=== PATIENT | female | born 1950 | race Caucasian/White ===

== ENCOUNTER 2020-03-27 06:56 | Outpatient (CLI) | payer MEDICARE ==
--- NOTE | 2020-03-27 10:22 | ULT ---
ABDOMINAL ULTRASOUND COMPLETE: HISTORY: Elevated LFTs. COMPARISON: 10/12/2017 gallbladder ultrasound. FINDINGS: Liver shows coarse increased echogenicity, evidence for fatty change with minimal hepatomegaly. Stat us post cholecystectomy. Common bile duct 0.6 cm. No focal liver masses. Visualized pancreas, IVC, and aorta are unremarkable. The spleen is upper range of normal size. The kidneys show no hydronep hrosis or other acute process. No abnormal fluid collection. IMPRESSION: 1. Enlarged heterogeneously echogenic probably fatty liver. 2. Status post cholecystectomy. 3. Borderline-size spleen. POS: [facility]
== END 2020-03-27 06:57 | disposition home or self-care (01) ==
LOC: BICULT 06:56
PROVIDERS: ATTEND Internal Medicine Cardiovascular Disease
DX: R74.8 Abnormal levels of other serum enzymes (principal); R93.2 Abnormal findings on diagnostic imaging of liver and biliary tract; R16.0 Hepatomegaly, not elsewhere classified; Z90.49 Acquired absence of other specified parts of digestive tract
CPT/HCPCS: 93975

== ENCOUNTER 2020-10-02 07:29 | Outpatient (CLI) | payer MEDICARE ==
[2020-10-02 08:13] LABS: Estimated GFR-MDRD - POC Greater than 90
--- NOTE | 2020-10-02 10:15 | MRI ---
MRI OF THE ABDOMEN WITHOUT AND WITH CONTRAST: COMPARISON: Abdominal ultrasound 03/27/2020. HISTORY: Right upper quadrant abdominal pain and elevated LFTs. TECHNIQUE: Multiplanar, multisequence MR images were obtained of the abdomen without and with IV contrast. FINDINGS: The gallbladder has been removed. There is a tiny 4 mm focus of high T2 signal in the caudate lobe o f the liver. This is difficult to see on the post contrast images secondary to pulsation artifact fr om the aorta. This most likely represents a small cyst. There is diffuse loss of signal in the live r on the [id number] images consistent with fatty infiltration. No biliary dilatation is seen. There is slight prominence of the right renal collecting system. The left kidney, adrenal glands, sp dilia, and pancreas are unremarkable. No abdominal adenopathy is seen. No abnormal enhancement is ap preciated. No marrow signal abnormality is present. IMPRESSION: 1. Fatty liver. 2. Likely small cyst in the caudate lobe of the liver. 3. Slight prominence of the right renal collecting system. POS: [facility]
[2020-10-02] MEDS ORDERED: Magnevist 469MG/ML 20 ML VIAL ONE (14:15)
== END 2020-10-02 07:30 | disposition home or self-care (01) ==
LOC: BICMRI 07:29
PROVIDERS: ATTEND Internal Medicine Gastroenterology
DX: K76.0 Fatty (change of) liver, not elsewhere classified (principal); R89.0 Abnormal level of enzymes in specimens from other organs, systems and tissues; R10.11 Right upper quadrant pain
CPT/HCPCS: 74183; 82565; A9579

== ENCOUNTER 2021-10-11 07:51 | Outpatient (CLI) | payer MEDICARE | END 2021-10-11 07:52 | disposition home or self-care (01) | LOC: ULT 07:51 | PROVIDERS: ATTEND Physician Assistant Medical | DX: K76.0 Fatty (change of) liver, not elsewhere classified (principal); Z90.49 Acquired absence of other specified parts of digestive tract | CPT/HCPCS: 76705 ==

== ENCOUNTER 2022-08-03 10:40 | Outpatient (CLI) | payer MEDICARE | END 2022-08-03 10:41 | disposition home or self-care (01) | LOC: DTY/OP 10:40 | PROVIDERS: ATTEND Surgery | DX: E66.01 Morbid (severe) obesity due to excess calories (principal) | CPT/HCPCS: 97802 ==

== ENCOUNTER 2022-09-13 09:49 | Outpatient (CLI) | payer MEDICARE ==
[2022-09-13 10:59] LABS: #Eosinphils 0.1 10x3/uL (0.0-0.5); #Monocytes 0.9 10x3/uL (0.0-1.1); #Neutrophils 5.3 10x3/uL (1.5-8.4); %Basophils 0.3 % (0.0-2.0); %Lymphocytes 27.7 % (18.0-47.0); %Monocytes 10.3 % (0.0-10.0); %Neutrophils 60.1 % (40.0-75.0); Hemoglobin 12.8 g/dL (12.0-15.5); Mean Corpuscular HGB CONC 33.9 g/dL (32.0-36.0); Mean Corpuscular Hemoglobin 29.4 pg (27.0-33.0); Mean Corpuscular Volume 86.9 fl (81.6-98.3); Mean Platelet Volume 11.1 fl (7.4-10.4); Platelet Count 214 10x3/uL (150-450); RBC Distribution Width 13.8 % (11.5-14.5); Red Blood Cell (RBC) Count 4.35 10x6/uL (3.90-5.03); White Blood Cell (WBC) Count 8.8 10x3/uL (3.5-10.5)
[2022-09-13 11:20] LABS: ALT (SGPT) 84 U/L (8-55); AST (SGOT) 116 U/L (5-34); Albumin 4.2 g/dL (3.4-4.8); Alkaline Phosphatase 69 U/L (40-110); Anion Gap 16 mmol/L (10-20); BUN (Urea Nitrogen) 15 mg/dL (9.8-20.1); Bilirubin, Total 0.5 mg/dL (0.2-1.2); Calc. Creatinine Clearance 0 mL/min (70-130); Calcium 9.5 mg/dL (7.8-10.44); Carbon Dioxide 22 mmol/L (23-31); Chloride 104 mmol/L (98-107); Estimated GFR 94; Globulin 3.6 g/dL (2.4-3.5); Glucose 197 mg/dL (80-115); Protein, Total 7.8 g/dL (5.8-8.1); Sodium 138 mmol/L (136-145)
[2022-09-13 14:19] LABS: Hemoglobin A1c 6.6 % (4.0-6.0)
== END 2022-09-13 09:50 | disposition home or self-care (01) ==
LOC: LABBT 09:49
PROVIDERS: ATTEND Surgery
DX: Z01.818 Encounter for other preprocedural examination (principal); E66.01 Morbid (severe) obesity due to excess calories
CPT/HCPCS: 71046; 80053; 83036; 85025

== ENCOUNTER 2022-09-13 10:00 | Inpatient (IN) | payer MEDICARE ==
[2022-09-26 12:52] VITALS: BMI 35.6
[2022-09-27] MEDS ORDERED: Heparin 5,000 UNITS/ML VIAL ONE (10:12)
[2022-09-27 11:23] LABS: SARS-CoV-2 NAA Rapid Test Not Detected (NotDetected)
[2022-09-27] MEDS ORDERED: Bupivacaine/Epinephrine 0.25% 30 ML VIAL ONE (12:30)
[2022-09-27] MEDS ORDERED: Ketamine 50 MG/ML (10ML VIAL) ONE (12:34)
[2022-09-27] MEDS ORDERED: SUGAMMADEX SODIUM 200 MG/2 ML VIAL ONE (12:34)
[2022-09-27] MEDS ORDERED: fentaNYL PF 100 MCG/2 ML SYRINGE ONE (12:34)
[2022-09-27] MEDS ORDERED: Sodium Chloride 0.9% 100 ML ONE (12:37)
[2022-09-27] MEDS ORDERED: CEFAZOLIN 2 GM VIAL ONE (12:37)
[2022-09-27] MEDS ORDERED: NEOSTIGMINE 3 MG/3 ML SYR 3 MG/3 ML SYRINGE ONE (12:56)
[2022-09-27] MEDS ORDERED: Ondansetron PF 4 MG/2 ML Vial ONE (12:56)
[2022-09-27] MEDS ORDERED: Rocuronium Bromide 10 MG/ML (10ML VIAL) ONE (12:56)
[2022-09-27] MEDS ORDERED: Glycopyrrolate 0.2 MG/ML 5 ML SYRINGE ONE (12:56)
[2022-09-27] MEDS ORDERED: Dexamethasone 20 MG/5 ML VIAL ONE (12:56)
[2022-09-27] MEDS ORDERED: PROPOFOL 200 MG/20 ML VIAL ONE (12:56)
[2022-09-27] MEDS ORDERED: Phenylephrine 10 MG/ML VIAL ONE (12:56)
[2022-09-27] MEDS ORDERED: Dextrose 50% Abboject 50 ML SYRINGE SLOW IVP PRN ×2 (14:24→14:26)
[2022-09-27] MEDS ORDERED: hydrALAZINE 20 MG/ML VIAL SLOW IVP PRN (14:24)
[2022-09-27] MEDS ORDERED: Dextrose 5% in Water 1,000 ML IV PRN ×2 (14:24→14:26)
[2022-09-27] MEDS ORDERED: Promethazine HCl 25 MG/ML VIAL IM PRN ×2 (14:24→14:34)
[2022-09-27] MEDS ORDERED: Morphine 4 MG/ML VIAL SLOW IVP PRN (14:24)
[2022-09-27] MEDS ORDERED: diphenhydrAMINE 50 MG/ML VIAL IVP PRN (14:24)
[2022-09-27] MEDS ORDERED: Promethazine HCl 25 MG/ML VIAL IVPB PRN (14:34)
[2022-09-27] MEDS ORDERED: Ondansetron HCl/PF 4 MG/2 ML Vial IVP PRN (14:34)
[2022-09-27] MEDS ORDERED: FENTANYL 50 MCG/ML 1 ML VIAL ONE ×2 (14:46→15:18)
[2022-09-27] MEDS ORDERED: Insulin Regular 300 UNITS/3 ML VIAL ONE (15:17)
[2022-09-27] MEDS: 1/2 NS w/KCL 20 mEq 1,000 ML IV SCH (17:30)
[2022-09-27] MEDS ORDERED: Ketorolac Tromethamine 30 MG/ML VIAL IVP SCH (18:00)
[2022-09-27] MEDS: Insulin Regular 300 UNITS/3 ML VIAL SC PRN (18:34)
[2022-09-27] MEDS: Ondansetron PF 4 MG/2 ML Vial IVP PRN ×2 (18:35→21:36)
[2022-09-27] MEDS: Hydrocodone-Acetamin 15 ML UDCUP PO PRN (21:31)
[2022-09-27] MEDS: CEFAZOLIN 2 GM in Sodium Chloride 0.9% 100 ML IVPB SCH (22:05)
[2022-09-28] MEDS: Morphine 4 MG/ML VIAL SLOW IVP PRN ×2 (00:02→04:34)
[2022-09-28] MEDS: Hydrocodone-Acetamin 15 ML UDCUP PO PRN ×3 (00:16→10:11)
[2022-09-28] MEDS: Insulin Regular 300 UNITS/3 ML VIAL SC PRN (01:15)
[2022-09-28] MEDS: 1/2 NS w/KCL 20 mEq 1,000 ML IV SCH (04:01)
[2022-09-28] MEDS: CEFAZOLIN 2 GM in Sodium Chloride 0.9% 100 ML IVPB SCH (04:35)
[2022-09-28 06:34] LABS: #Lymphocytes 2.2 thou/uL (1.20-3.40); #Monocytes 1.4 thou/uL (0.11-0.59); %Eosinophils 0.1 % (0.0-10.0); %Lymphocytes 14.8 % (21.0-51.0); %Monocytes 9.4 % (0.0-10.0); %Neutrophils 75.8 % (42.0-75.0); Hemoglobin 12.4 g/dL (12.0-16.0); Mean Corpuscular HGB CONC 33.1 g/dL (32.0-36.0); Mean Corpuscular Hemoglobin 30.5 pg (27.0-31.0); Mean Corpuscular Volume 92.2 fl (78.0-98.0); Mean Platelet Volume 8.7 fL (7.4-10.4); Platelet Count 234 10x3/uL (130-400); RBC Distribution Width 13.7 % (11.5-14.5); Red Blood Cell (RBC) Count 4.06 mill/uL (4.20-5.40); White Blood Cell (WBC) Count 14.5 10x3/uL (4.8-10.8)
[2022-09-28 06:55] LABS: Anion Gap 15 mmol/L (10-20); BUN (Urea Nitrogen) 13 mg/dL (9.8-20.1); Calc. Creatinine Clearance 120 mL/min (70-130); Calcium 8.8 mg/dL (7.8-10.44); Carbon Dioxide 20 mmol/L (23-31); Chloride 104 mmol/L (98-107); Estimated GFR 94; Glucose 153 mg/dL (80-115); Potassium 4.2 mmol/L (3.5-5.1); Sodium 135 mmol/L (136-145)
[2022-09-28] MEDS ORDERED: Pantoprazole 40 MG VIAL IVP SCH (09:00)
[2022-09-28] MEDS ORDERED: Enoxaparin Sodium 40 MG/0.4 ML SYRINGE SC SCH (09:00)
[2022-09-28 12:51] VITALS: BP 135/70; TEMP 97.5
== END 2022-09-28 14:49 | disposition home or self-care (01) | DRG 621 ==
LOC: SURG A 09-27 09:55 → SURG B 09-27 17:33
PROVIDERS: ADMIT Surgery; ATTEND Surgery
PROC: 0DB64Z3 Excision of Stomach, Percutaneous Endoscopic Approach, Vertical (ICD-10-PCS; principal; 2022-09-27)
PROC: 0FB24ZX Excision of Left Lobe Liver, Percutaneous Endoscopic Approach, Diagnostic (ICD-10-PCS; 2022-09-27)
PROC: 8E0W4CZ Robotic Assisted Procedure of Trunk Region, Percutaneous Endoscopic Approach (ICD-10-PCS; 2022-09-27)
DX: E66.01 Morbid (severe) obesity due to excess calories (principal); E78.00 Pure hypercholesterolemia, unspecified; E11.9 Type 2 diabetes mellitus without complications; K74.60 Unspecified cirrhosis of liver; D64.9 Anemia, unspecified; Z96.651 Presence of right artificial knee joint; M19.90 Unspecified osteoarthritis, unspecified site; Z20.822 Contact with and (suspected) exposure to COVID-19; Z79.84 Long term (current) use of oral hypoglycemic drugs; Z90.49 Acquired absence of other specified parts of digestive tract; Z90.89 Acquired absence of other organs; Z90.710 Acquired absence of both cervix and uterus; Z95.5 Presence of coronary angioplasty implant and graft; Z82.49 Family history of ischemic heart disease and other diseases of the circulatory system; Z79.82 Long term (current) use of aspirin; Z79.899 Other long term (current) drug therapy; Z80.9 Family history of malignant neoplasm, unspecified; Z82.3 Family history of stroke; Z88.8 Allergy status to other drugs, medicaments and biological substances; Z68.35 Body mass index [BMI] 35.0-35.9, adult
CPT/HCPCS: 36415; 36416; 80048; 85025; 88307; 88313; C1889; C9113; J1100; J1644; J1650; J1815; J2270; J2370; J2405; J2704; J3010; J3480; J3490; U0002

== ENCOUNTER 2022-09-21 13:52 | Outpatient (CLI) | payer MEDICARE | END 2022-09-21 13:53 | disposition home or self-care (01) | LOC: BICCT 13:52 | PROVIDERS: ATTEND Internal Medicine Gastroenterology | DX: K76.0 Fatty (change of) liver, not elsewhere classified (principal); R19.06 Epigastric swelling, mass or lump; R16.0 Hepatomegaly, not elsewhere classified; I85.00 Esophageal varices without bleeding | CPT/HCPCS: 74170 ==

== ENCOUNTER 2022-10-25 08:12 | Day surgery (SDC) | payer OTHER ==
[2022-10-20 09:56] VITALS: BMI 32.5
[~2022-10-25 08:12] MED LIST: EPINEPHrine 0.3 MG in Ophthalmic Irrigation Solution 500 ML IRR SCH; Fentanyl 100 MCG/2 ML VIAL ONE; Midazolam HCl 2 mg/2 ml Vial ONE
[2022-10-25] MEDS ORDERED: Cyclopentolate 1% Opth Drop 2 ML BOT ONE (08:32)
[2022-10-25] MEDS ORDERED: Phenylephrine 2.5% Ophth Soln 5 ML BOT ONE (08:32)
[2022-10-25] MEDS ORDERED: CEFAZOLIN 1 GM VIAL ONE (09:41)
[2022-10-25] MEDS ORDERED: Indocyanine Green 25 MG/10 ML VIAL ONE (09:41)
[2022-10-25] MEDS ORDERED: Lidocaine 4% PF 5 ML AMP ONE (09:41)
[2022-10-25] MEDS ORDERED: Maxitrol 0.1% Opth Oint 3.5 GM TUBE ONE (09:41)
[2022-10-25] MEDS ORDERED: Triamcinolone 40 MG/ML VIAL ONE (09:41)
[2022-10-25] MEDS ORDERED: Lidocaine 1% PF 5 ML VIAL ONE (09:41)
[2022-10-25] MEDS ORDERED: PROPOFOL 200 MG/20 ML VIAL ONE (09:41)
[2022-10-25] MEDS ORDERED: Bupivacaine 0.75% 10 ML VIAL ONE (09:41)
== END 2022-10-25 10:55 | disposition home or self-care (01) ==
LOC: SDC 08:12
PROVIDERS: ATTEND Ophthalmology Retina Specialist
PROC: 08T53ZZ Resection of Left Vitreous, Percutaneous Approach (ICD-10-PCS; principal; 2022-10-25)
PROC: 08NF3ZZ Release Left Retina, Percutaneous Approach (ICD-10-PCS; 2022-10-25)
DX: H35.342 Macular cyst, hole, or pseudohole, left eye (principal); I48.91 Unspecified atrial fibrillation; I07.1 Rheumatic tricuspid insufficiency; M19.90 Unspecified osteoarthritis, unspecified site; G89.29 Other chronic pain; M54.9 Dorsalgia, unspecified; Z79.620 Long term (current) use of immunosuppressive biologic; Z79.899 Other long term (current) drug therapy; Z88.1 Allergy status to other antibiotic agents; Z88.6 Allergy status to analgesic agent
CPT/HCPCS: 67025; J0171; J0690; J2250; J2704; J3010; J3301; J3490

== ENCOUNTER 2023-08-23 08:00 | Outpatient (CLI) | payer MEDICARE ==
[2023-08-23] MEDS ORDERED: Magnevist 469MG/ML 20 ML VIAL ONE (09:42)
== END 2023-08-23 08:01 | disposition home or self-care (01) ==
LOC: BICMRI 08:00
PROVIDERS: ATTEND Internal Medicine Gastroenterology
DX: K76.0 Fatty (change of) liver, not elsewhere classified (principal); K74.60 Unspecified cirrhosis of liver; N13.30 Unspecified hydronephrosis; Z83.719 Family history of colon polyps, unspecified; Z86.010 Personal history of colon polyps
CPT/HCPCS: 36415; 74183; 80053; 82105; 85025

== ENCOUNTER 2023-08-28 12:48 | Outpatient (CLI) | payer MEDICARE | END 2023-08-28 12:49 | disposition home or self-care (01) | LOC: BICCT 12:48 | PROVIDERS: ATTEND Internal Medicine Gastroenterology | DX: N13.1 Hydronephrosis with ureteral stricture, not elsewhere classified (principal); R93.3 Abnormal findings on diagnostic imaging of other parts of digestive tract; K76.0 Fatty (change of) liver, not elsewhere classified | CPT/HCPCS: 74178 ==

== ENCOUNTER 2023-08-30 16:07 | Outpatient (CLI) | payer MEDICARE ==
[2023-08-30 16:53] LABS: Hematocrit 39.7 % (34.9-44.5); Hemoglobin 13.7 g/dL (12.0-15.5); Mean Corpuscular HGB CONC 34.5 g/dL (32.0-36.0); Mean Corpuscular Hemoglobin 29.3 pg (27.0-33.0); Mean Platelet Volume 10.1 fl (7.4-10.4); Platelet Count 216 10x3/uL (150-450); RBC Distribution Width 13.5 % (11.5-14.5); Red Blood Cell (RBC) Count 4.67 10x6/uL (3.90-5.03); White Blood Cell (WBC) Count 9.3 10x3/uL (3.5-10.5)
[2023-08-30 17:05] LABS: Chloride 104 mmol/L (98-107); Sodium 142 mmol/L (136-145)
[2023-08-30 17:10] LABS: PTT 28.8 sec (22.0-33.0); Prothrombin Time 10.9 sec (9.5-12.1)
[2023-08-30 17:27] LABS: BUN (Urea Nitrogen) 17 mg/dL (9.8-20.1); Calc. Creatinine Clearance 0 mL/min (70-130); Calcium 9.6 mg/dL (7.8-10.44); Carbon Dioxide 26 mmol/L (23-31); Estimated GFR 86; Glucose 107 mg/dL (80-115)
[2023-08-30 17:38] LABS: Anion Gap 16 mmol/L (10-20)
== END 2023-08-30 16:08 | disposition home or self-care (01) ==
LOC: LABBT 16:07
PROVIDERS: ATTEND Urology
DX: Z01.818 Encounter for other preprocedural examination (principal); N20.1 Calculus of ureter
CPT/HCPCS: 80048; 85027; 85610; 85730; 93005; 93010

== ENCOUNTER 2023-08-31 08:44 | Day surgery (SDC) | payer MEDICARE ==
[2023-08-30 16:29] VITALS: BMI 29.9
[2023-08-31] MEDS ORDERED: fentaNYL 50 mcg/mL 1 mL Vial ONE (10:40)
[2023-08-31] MEDS ORDERED: Iopamidol 0 ML ONE (10:42)
[2023-08-31] MEDS ORDERED: LevoFLOXacin 500 mg/D5W 100 ML BAG ONE (11:02)
[2023-08-31] MEDS ORDERED: Lidocaine 1% PF 5 ML VIAL ONE (11:18)
[2023-08-31] MEDS ORDERED: Rocuronium Bromide 10 MG/ML (10ML VIAL) ONE (11:18)
[2023-08-31] MEDS ORDERED: Dexamethasone 20 MG/5 ML VIAL ONE (11:18)
[2023-08-31] MEDS ORDERED: PROPOFOL 200 MG/20 ML VIAL ONE (11:18)
[2023-08-31] MEDS ORDERED: Succinylcholine 200 MG/10 ml SYRINGE FS ONE (11:18)
[2023-08-31] MEDS ORDERED: Glycopyrrolate 0.2 MG/ML 5 ML SYRINGE ONE (11:18)
[2023-08-31] MEDS ORDERED: Ondansetron PF 4 MG/2 ML Vial ONE (11:18)
[2023-08-31] MEDS ORDERED: Oxybutynin 5 MG TAB ONE (12:21)
[2023-08-31] MEDS ORDERED: Phenazopyridine HCl 100 MG TAB ONE (12:21)
== END 2023-08-31 13:30 | disposition home or self-care (01) ==
LOC: SDC 08:44
PROVIDERS: ATTEND Urology
PROC: 0TC78ZZ Extirpation of Matter from Left Ureter, Via Natural or Artificial Opening Endoscopic (ICD-10-PCS; principal; 2023-08-31)
PROC: 0T778DZ Dilation of Left Ureter with Intraluminal Device, Via Natural or Artificial Opening Endoscopic (ICD-10-PCS; 2023-08-31)
DX: N20.1 Calculus of ureter (principal); M19.90 Unspecified osteoarthritis, unspecified site; E78.00 Pure hypercholesterolemia, unspecified; D64.9 Anemia, unspecified; E11.9 Type 2 diabetes mellitus without complications; I10 Essential (primary) hypertension; Z90.49 Acquired absence of other specified parts of digestive tract; Z90.710 Acquired absence of both cervix and uterus; Z98.890 Other specified postprocedural states; Z88.8 Allergy status to other drugs, medicaments and biological substances; Z88.6 Allergy status to analgesic agent; Z91.041 Radiographic dye allergy status; Z79.899 Other long term (current) drug therapy
CPT/HCPCS: 52356; 82365; C1769; C2617; J3010; 88300; J1100; J1956; J2405; J2704; Q9967

== ENCOUNTER 2023-12-21 09:09 | Outpatient (CLI) | payer MEDICARE | END 2023-12-21 09:10 | disposition home or self-care (01) | LOC: BICULT 09:09 | PROVIDERS: ATTEND Urology | DX: N20.1 Calculus of ureter (principal) | CPT/HCPCS: 76770 ==

== ENCOUNTER 2024-01-06 09:48 | Inpatient (IN) | payer MEDICARE ==
[2024-01-06] MEDS ORDERED: Ondansetron PF 4 MG/2 ML Vial ONE (10:09)
[2024-01-06] MEDS ORDERED: Morphine 4 MG/ML VIAL ONE (10:09)
[2024-01-06 10:33] LABS: #Eosinphils 0.1 thou/uL (0.0-0.7); #Monocytes 0.9 thou/uL (0.11-0.59); #Neutrophils 7.4 thou/uL (1.40-6.50); %Basophils 0.2 % (0.0-1.0); %Eosinophils 0.6 % (0.0-10.0); %Lymphocytes 23.3 % (21.0-51.0); %Monocytes 8.1 % (0.0-10.0); %Neutrophils 67.5 % (42.0-75.0); Hematocrit 36.8 % (36.0-47.0); Hemoglobin 12.4 g/dL (12.0-16.0); Mean Corpuscular HGB CONC 33.7 g/dL (32.0-36.0); Mean Corpuscular Hemoglobin 29.7 pg (27.0-31.0); Mean Platelet Volume 10.6 fL (7.4-10.4); Platelet Count 203 10x3/uL (130-400); RBC Distribution Width 13.7 % (11.5-14.5); Red Blood Cell (RBC) Count 4.18 mill/uL (4.20-5.40)
[2024-01-06 10:54] LABS: ALT (SGPT) 23 U/L (8-55); AST (SGOT) 23 U/L (5-34); Albumin 3.6 g/dL (3.4-4.8); Alkaline Phosphatase 81 U/L (40-110); Anion Gap 13 mmol/L (10-20); BUN (Urea Nitrogen) 17 mg/dL (9.8-20.1); Bilirubin, Total 0.5 mg/dL (0.2-1.2); Calc. Creatinine Clearance 0 mL/min (70-130); Calcium 8.6 mg/dL (7.8-10.44); Carbon Dioxide 21 mmol/L (23-31); Chloride 108 mmol/L (98-107); Estimated GFR 85; Glucose 136 mg/dL (83-110); Lipase 30 U/L (8-78); Potassium 3.7 mmol/L (3.5-5.1); Protein, Total 6.6 g/dL (5.8-8.1); Sodium 138 mmol/L (136-145)
[2024-01-06 10:55] LABS: INR-International Normal Ratio 1.1; PTT 31.6 sec (22.9-36.1); Prothrombin Time 14.6 sec (12.0-14.7)
[2024-01-06 10:56] LABS: D-Dimer Test 1.02 mcg/mL (0.27-0.43)
[2024-01-06 10:57] LABS: Troponin I 0.017 ng/mL (< 0.028)
[2024-01-06 11:08] LABS: Magnesium 2.2 mg/dL (1.6-2.6)
[2024-01-06] MEDS ORDERED: Calcium Carbonate 500 MG ChewTAB PO PRN (12:58)
[2024-01-06] MEDS ORDERED: Ondansetron ODT 4 MG TAB PO PRN (12:58)
[2024-01-06] MEDS ORDERED: Bisacodyl 5 MG TAB PO PRN (12:58)
[2024-01-06] MEDS ORDERED: Zolpidem Tartrate 5 MG TAB PO PRN (12:58)
[2024-01-06] MEDS ORDERED: Ondansetron PF 4 MG/2 ML Vial IVP PRN (12:58)
[2024-01-06] MEDS ORDERED: Iopamidol-370 76% 500 ML MDV (1 ML CHARGE) ONE (13:26)
[2024-01-06 13:36] LABS: Troponin I Less than 0.010 ng/mL (< 0.028)
[2024-01-06] MEDS: HYDROcodone/Acetaminophen 5/325 mg Tablet PO PRN (16:32)
[2024-01-06] MEDS: Sodium Chloride 0.9% 1,000 ML IV SCH (16:32)
[2024-01-06 17:09] VITALS: BMI 31.8
[2024-01-06 17:50] LABS: Troponin I Less than 0.010 ng/mL (< 0.028)
[2024-01-06] MEDS: Vit A,C & E/Lutein/Minerals Tablet PO SCH (20:47)
[2024-01-06] MEDS: Amlodipine 5 MG TAB PO SCH (20:47)
[2024-01-07 06:25] LABS: #Eosinphils 0.2 thou/uL (0.0-0.7); #Monocytes 0.8 thou/uL (0.11-0.59); #Neutrophils 4.2 thou/uL (1.40-6.50); %Basophils 0.1 % (0.0-1.0); %Eosinophils 2.6 % (0.0-10.0); %Lymphocytes 31.3 % (21.0-51.0); %Neutrophils 54.7 % (42.0-75.0); Hematocrit 36.8 % (36.0-47.0); Hemoglobin 12.6 g/dL (12.0-16.0); Mean Corpuscular HGB CONC 34.2 g/dL (32.0-36.0); Mean Corpuscular Hemoglobin 29.5 pg (27.0-31.0); Mean Corpuscular Volume 86.2 fl (78.0-98.0); Mean Platelet Volume 10.7 fL (7.4-10.4); Platelet Count 167 10x3/uL (130-400); RBC Distribution Width 13.8 % (11.5-14.5); Red Blood Cell (RBC) Count 4.27 mill/uL (4.20-5.40); White Blood Cell (WBC) Count 7.7 10x3/uL (4.8-10.8)
[2024-01-07 07:20] LABS: Troponin I 0.017 ng/mL (< 0.028)
[2024-01-07 07:23] LABS: ALT (SGPT) 26 U/L (8-55); AST (SGOT) 23 U/L (5-34); Albumin 3.6 g/dL (3.4-4.8); Alkaline Phosphatase 86 U/L (40-110); Anion Gap 13 mmol/L (10-20); BUN (Urea Nitrogen) 10 mg/dL (9.8-20.1); Bilirubin, Total 0.5 mg/dL (0.2-1.2); Calc. Creatinine Clearance 116 mL/min (70-130); Calcium 8.8 mg/dL (7.8-10.44); Carbon Dioxide 22 mmol/L (23-31); Chloride 106 mmol/L (98-107); Estimated GFR 96; Globulin 3.1 g/dL (2.4-3.5); Glucose 135 mg/dL (83-110); Potassium 3.6 mmol/L (3.5-5.1); Protein, Total 6.7 g/dL (5.8-8.1); Sodium 137 mmol/L (136-145)
[2024-01-07] MEDS: Cholecalciferol 1,000 UNITS (25 MCG) TAB PO SCH (09:05)
[2024-01-07] MEDS: Vitamin E 400 UNITS CAP PO SCH (09:05)
[2024-01-08] MEDS: Senokot S 8.6-50 MG TAB PO PRN (08:55)
[2024-01-08 10:17] LABS: Bacteria/HPF None Seen HPF (None Seen); Bilirubin Negative (Negative); Blood, Urine Negative (Negative); Clarity Clear (Clear); Glucose, Urine (Dipstick) Normal (Negative); Ketone, Urine Negative (Negative); Leukocyte Negative Leu/uL (Negative); Nitrite Negative (Negative); Protein, Urine (Dipstick) Negative (Neg-Trace); RBC/HPF 0-3 HPF (0-3); Specific Gravity, Urine 1.008 (1.002-1.036); Squamous Epithelial 0-3 HPF (0-3); Urobilinogen Normal mg/dL (Less than 2); WBC/HPF 0-3 HPF (0-3)
[2024-01-08] MEDS ORDERED: cloNIDine 0.1 MG TAB PO PRN (10:30)
[2024-01-08] MEDS: Metoprolol Tartrate 50 MG TAB PO SCH ×2 (14:02→20:28)
[2024-01-08] MEDS: Propafenone HCl 150 MG TAB PO SCH (14:03)
[2024-01-08] MEDS: Aspirin 81 mg Enteric Coated Tablet PO SCH (14:03)
[2024-01-09 05:07] LABS: #Eosinphils 0.2 thou/uL (0.0-0.7); #Monocytes 0.7 thou/uL (0.11-0.59); %Basophils 0.3 % (0.0-1.0); %Eosinophils 2.7 % (0.0-10.0); %Lymphocytes 37.5 % (21.0-51.0); %Monocytes 11.7 % (0.0-10.0); %Neutrophils 47.5 % (42.0-75.0); Hematocrit 37.6 % (36.0-47.0); Hemoglobin 12.9 g/dL (12.0-16.0); Mean Corpuscular HGB CONC 34.3 g/dL (32.0-36.0); Mean Corpuscular Hemoglobin 29.8 pg (27.0-31.0); Mean Corpuscular Volume 86.8 fl (78.0-98.0); Mean Platelet Volume 10.6 fL (7.4-10.4); Platelet Count 177 10x3/uL (130-400); RBC Distribution Width 13.6 % (11.5-14.5); Red Blood Cell (RBC) Count 4.33 mill/uL (4.20-5.40); White Blood Cell (WBC) Count 6.3 10x3/uL (4.8-10.8)
[2024-01-09 05:41] LABS: ALT (SGPT) 27 U/L (8-55); AST (SGOT) 22 U/L (5-34); Albumin 3.7 g/dL (3.4-4.8); Alkaline Phosphatase 84 U/L (40-110); Anion Gap 13 mmol/L (10-20); BUN (Urea Nitrogen) 11 mg/dL (9.8-20.1); Bilirubin, Total 0.7 mg/dL (0.2-1.2); Calc. Creatinine Clearance 104 mL/min (70-130); Calcium 9.3 mg/dL (7.8-10.44); Carbon Dioxide 24 mmol/L (23-31); Chloride 105 mmol/L (98-107); Estimated GFR 93; Globulin 3.3 g/dL (2.4-3.5); Glucose 158 mg/dL (83-110); Potassium 3.4 mmol/L (3.5-5.1); Sodium 139 mmol/L (136-145)
[2024-01-09] MEDS: Aspirin 81 mg Enteric Coated Tablet PO SCH (08:48)
[2024-01-09] MEDS: Potassium Chloride 20 MEQ TAB PO SCH (10:45)
[2024-01-10 04:49] LABS: #Eosinphils 0.1 thou/uL (0.0-0.7); #Monocytes 0.8 thou/uL (0.11-0.59); #Neutrophils 3.9 thou/uL (1.40-6.50); %Basophils 0.1 % (0.0-1.0); %Eosinophils 1.8 % (0.0-10.0); %Lymphocytes 35.1 % (21.0-51.0); %Monocytes 10.1 % (0.0-10.0); %Neutrophils 52.6 % (42.0-75.0); Hematocrit 35.8 % (36.0-47.0); Hemoglobin 12.3 g/dL (12.0-16.0); Mean Corpuscular HGB CONC 34.4 g/dL (32.0-36.0); Mean Corpuscular Hemoglobin 29.3 pg (27.0-31.0); Mean Corpuscular Volume 85.2 fl (78.0-98.0); Mean Platelet Volume 10.8 fL (7.4-10.4); Platelet Count 178 10x3/uL (130-400); RBC Distribution Width 13.7 % (11.5-14.5); White Blood Cell (WBC) Count 7.4 10x3/uL (4.8-10.8)
[2024-01-10 05:14] LABS: ALT (SGPT) 22 U/L (8-55); AST (SGOT) 17 U/L (5-34); Albumin 3.6 g/dL (3.4-4.8); Alkaline Phosphatase 82 U/L (40-110); Anion Gap 14 mmol/L (10-20); BUN (Urea Nitrogen) 10 mg/dL (9.8-20.1); Bilirubin, Total 0.8 mg/dL (0.2-1.2); Calc. Creatinine Clearance 105 mL/min (70-130); Calcium 8.8 mg/dL (7.8-10.44); Carbon Dioxide 22 mmol/L (23-31); Chloride 107 mmol/L (98-107); Estimated GFR 93; Globulin 3.1 g/dL (2.4-3.5); Glucose 159 mg/dL (83-110); Potassium 3.5 mmol/L (3.5-5.1); Protein, Total 6.7 g/dL (5.8-8.1); Sodium 139 mmol/L (136-145)
[2024-01-10] MEDS: Potassium Chloride 20 MEQ TAB PO SCH (10:42)
[2024-01-10 10:46] LABS: Hemoglobin A1c 5.7 % (4.0-6.0)
[2024-01-10 16:42] VITALS: BP 158/72; TEMP 97.6
[2024-01-10] MEDS ORDERED: OLANZapine 10 MG VIAL IM SCH (16:45)
[2024-01-10] MEDS: Amlodipine 5 MG TAB PO SCH (16:46)
[2024-01-10] MEDS ORDERED: QUEtiapine 25 MG TAB PO SCH (21:00)
[2024-01-11] MEDS ORDERED: Amlodipine 5 MG TAB PO SCH (09:00)
== END 2024-01-10 18:00 | disposition home or self-care (01) | DRG 312 ==
LOC: ERS 09:48 → ERHOLD 13:04 → 2SW 16:09 → OBSVTOIN 01-08 12:20
PROVIDERS: ADMIT Internal Medicine; ATTEND Internal Medicine
DX: R55 Syncope and collapse (principal); I48.19 Other persistent atrial fibrillation; I25.10 Atherosclerotic heart disease of native coronary artery without angina pectoris; Z88.8 Allergy status to other drugs, medicaments and biological substances; Z79.899 Other long term (current) drug therapy; E78.5 Hyperlipidemia, unspecified; Z66 Do not resuscitate; Z90.710 Acquired absence of both cervix and uterus; Z90.89 Acquired absence of other organs; Z96.651 Presence of right artificial knee joint; Z98.890 Other specified postprocedural states; Z88.1 Allergy status to other antibiotic agents; I10 Essential (primary) hypertension; Z90.49 Acquired absence of other specified parts of digestive tract; Z79.82 Long term (current) use of aspirin; E87.6 Hypokalemia
CPT/HCPCS: 36415; 70450; 71045; 71275; 80053; 81001; 83036; 83690; 83735; 83880; 84443; 84484; 85025; 85379; 85610; 85730; 93005; 93306; 96374; 96375; G0378; J2270; J2405; J7050; Q9967